=== PATIENT | male | born 1955 | race Two or more races ===

== ENCOUNTER 2016-03-30 06:43 | Emergency (ER) | payer OTHER ==
[~2016-03-30] VITALS: Ht 175.3 cm; Wt 81.6 kg
[2016-03-30] MEDS ORDERED: UNOBMED (06:51)
[2016-03-30] MEDS ORDERED: htn med (07:41)
[2016-03-30] MEDS ORDERED: IBUPROFEN600 MG ORAL (07:55)
[2016-03-30] MEDS ORDERED: ROBAXIN-750750 MG PO (07:55)
[2016-03-30] MEDS ORDERED: Oxycodone/Acetaminophen 5-325 ORAL ONE (08:00)
--- NOTE | 2016-03-30 08:01 | Emergency Room Report ---
History of Present Illness General Chief Complaint: Lower Back Pain or Injury Source: Patient Present Illness HPI 60 YOM with right lower back pain s/p slip and fall on "loose tile" on step outside his apartment. Fell directly backwards on lower back, did not brace fall with hands. Denies associated lower extremity weakness, urinary/fecal incontinence, previous back surgery or lower back injury. Denies fever/chills, urinary complaints. Allergies: Coded Allergies: No Known Allergies (Unverified , 03/30/16) Patient History Past Medical History: none Past Surgical History: none Pertinent Family History: none Social History: Denies: alcohol use, drug use, smoking Immunizations: UTD Reviewed Nursing Documentation: PMH: Agreed, PSxH: Agreed Nursing Documentation-PMH Hx Hypertension: Yes Review of Systems All Other Systems: negative except mentioned in HPI Physical Exam Vital Signs Date Time Temp Pulse Resp B/P Pulse Ox O2 Delivery O2 Flow Rate FiO2 03/30/16 06:47 85 14 159/93 98 Room Air Sp02 EP Interpretation: reviewed General Appearance: normal inspection, well appearing, no apparent distress, alert, GCS 15, non-toxic Head: normocephalic, atraumatic Eyes: bilateral eye EOMI, bilateral eye PERRL ENT: normal ENT inspection, hearing grossly normal, normal voice Neck: normal inspection, full range of motion, supple, no bony tend Respiratory: normal inspection, lungs clear, normal breath sounds, no respiratory distress, no retraction, no wheezing Cardiovascular #1: regular rate, rhythm, no edema Gastrointestinal: normal inspection, normal bowel sounds, non tender, soft, no guarding, no hernia Genitourinary: no CVA tenderness Musculoskeletal: normal inspection, back normal, normal range of motion, pelvis stable, Phil's Sign negative, other - Right lower back: abrasion, swelling for right lumbar paravertebral area. Neurologic: normal inspection, alert, oriented x3, responsive, room manager III-XII nml as tested, motor strength/tone normal, cerebellar normal, normal gait, speech normal Psychiatric: normal inspection, judgement/insight normal, mood/affect normal Skin: normal inspection, normal color, no rash Medical Decision Making Diagnostic Impression: Primary Impression: Low back pain Qualified Codes: M54.5 - Low back pain ER Course 60 YO M with traumatic right lower paravertebral pain s/p fall. VSS. Afebrile. A: low suspicion for cord compression given well appearance, right paravertebral ttp, no focal neuro deficits, absence of midline ttp/masses and pain worse with movement with known exacerbating activity Xray negative for acute traumatic injury Improved with analgesia DC witn Rx robaxin/ibuprofen and PMD followup Other X-Ray Diagnostic Results Other X-Ray Diagnostic Results : X-Ray Ordered: LS spine EP Interpretation: Yes Findings: no fractures, no dislocation, no soft tissue swelling Number of Views: 3 Last Vital Signs Date Time Temp Pulse Resp B/P Pulse Ox O2 Delivery O2 Flow Rate FiO2 03/30/16 06:47 85 14 159/93 98 Room Air Status: improved Disposition: HOME, SELF-CARE Condition: Improved Scripts Methocarbamol* (ROBAXIN-750*) 750 Mg Tablet 750 MG PO TID, #30 TAB 0 Refills Prov: DIMA BLISS M.D. 03/30/16 Ibuprofen* (MOTRIN*) 600 Mg Tablet 800 MG ORAL THREE TIMES A DAY, #30 TAB 0 Refills Prov: DIMA BLISS M.D. 03/30/16 Patient Instructions: Back Pain, Adult Additional Instructions: - Take robaxin with ibuprofen and food up to 3x a day - Apply ice to area of pain for first 2-3 days and then heat - Follow up with your doctor in 3 days if no improvement DIMA BLISS M.D. Mar 30, 2016 08:01
[2016-03-30 08:35] VITALS: BP 146/97
--- NOTE | 2016-03-30 10:50 | Diagnostic Imaging Report ---
Indication: Back pain Comparison: None Findings: 3 views of the lumbar spine were obtained. There is generalized osteopenia. There is no obvious fracture. Minimal endplate spurs are present. Alignment is normal. Impression: No obvious acute injury.
== END 2016-03-30 08:38 | disposition home or self-care (01) ==
LOC: EMR 08:00
DX: M54.5 Low back pain (principal); I10 Essential (primary) hypertension
CPT/HCPCS: 72020; 99283